=== PATIENT | male | born 1970 ===

== ENCOUNTER 2016-12-12 09:24 | Emergency (ER) | payer OTHER ==
[2016-12-12 10:16] VITALS: BP 143/81
[2016-12-12] MEDS ORDERED: DOXYcycline CAP(*) 100 MG PO ONE (10:57)
[2016-12-12] MEDS ORDERED: DOXYcycline CAP(*) 100 MG ONE (11:14)
--- NOTE | 2016-12-12 11:38 | UC ---
Skin Complaint HPI - HPI Summary HPI Summary: Patient presents to after finding a tick on the right side of his abdomen. He states he noticed it this morning, but is unsure how long it has been attached. He denies other ticks and checked this morning. He noticed some ticks on his arm which were not attached several weeks ago after hiking. He recently moved here and has never had a tick bite before, so he presents today for proper removal and prophylactic treatment of lyme. Denies neck pain, chest pain, SORENSEN, muscle aches, or neurological symptoms. Patient is otherwise healthy and takes no medications. - History of Current Complaint Chief Complaint: UCBiteInjury Time Seen by Provider: 12/12/16 10:36 Stated Complaint: TICK BITE Hx Obtained From: Patient Onset/Duration: Sudden Onset Skin Exposure Onset/Duration: Minutes Ago Timing: Constant Current Severity: None Pain Intensity: 0 Pain Scale Used: 0-10 Numeric Location: Discrete, Other - right side of abdomen Character: Redness Aggravating: Nothing Alleviating: Nothing Associated Signs & Symptoms: Positive: Negative Related History: Insect Bite/Sting - Allergy/Home Medications Allergies/Adverse Reactions: Allergies Allergy/AdvReac Type Severity Reaction Status Date / Time Tetanus Toxoid Allergy Unknown Unknown Verified 04/16/13 09:51 Reaction Details Review of Systems Constitutional: Negative Skin: Other - small tick attached to right side of abdomen ENT: Negative Respiratory: Negative Cardiovascular: Negative Motor: Negative Neurovascular: Negative Musculoskeletal: Negative Neurological: Negative Psychological: Negative All Other Systems Reviewed And Are Negative: Yes PMH/Surg Hx/FS Hx/Imm Hx Previously Healthy: Yes Endocrine History Of: Denies: Diabetes, Thyroid Disease Cardiovascular History Of: Denies: Cardiac Disorders, Hypertension, Pacemaker/ICD Respiratory History Of: Denies: COPD, Asthma GI/ History Of: Denies: Ulcer - Surgical History Surgical History: Yes Surgery Procedure, Year, and Place: TYMPANOPLASTY RIGHT EAR 2004-[facility]. TONSILS A CHILD. TUBES IN EARS A CHILD - Family History Known Family History: Positive: Unknown - Social History Occupation: Employed Full-time Lives: With Family Alcohol Use: Occasionally Substance Use Type: None Smoking Status (MU): Former Smoker - Immunization History Most Recent Tetanus Shot: WITH IN 5 YEARS Physical Exam Triage Information Reviewed: Yes Completion Of Physical Exam Limited Due To: Extremis Appearance: No Pain Distress, Well-Nourished Vital Signs: Initial Vital Signs Temp 97.8 F 12/12/16 10:09 Pulse 87 12/12/16 10:09 Resp 20 12/12/16 10:09 BP 143/81 12/12/16 10:09 Pulse Ox 99 12/12/16 10:09 Vital Signs Reviewed: Yes Eye Exam: Normal Neck exam: Normal Neck: Positive: Supple, No Lymphadenopathy Respiratory Exam: Normal Respiratory: Positive: Chest non-tender, Normal breath sounds Cardiovascular Exam: Normal Musculoskeletal Exam: Normal Neurological Exam: Normal Neurological: Positive: Alert Psychological Exam: Normal Psychological: Positive: Normal Response To Family Skin: Positive: significant lesion(s) - small tick attached to right side of abdomen with no surrounding erythema, bulls eye rash or other ticks visualized on physical exam. Course/Dx - Course Course Of Treatment: Tick was removed using Chelsie dish soap without complication. Patient was given Doxycycline 200mg for prophylactic treatment d/ t unknown time of tick latch. Educated patient on lyme disease and the need for prophylaxis as opposed to 2 week treatment. Explained he has not been diagnosed with lyme disease, but if any symptoms come up, he should follow up with his PCP for a lyme titer. - Differential Diagnoses - Skin Complaint Differential Diagnoses: Poison Jade, Tick Born Illness, Urticaria - Diagnoses Provider Diagnoses: Tick Bite Discharge - Discharge Plan Condition: Stable Disposition: HOME Patient Education Materials: Lyme Disease (ED), Tick Bite (ED) Referrals: Jose Grewal DO [Primary Care Provider] - Additional Instructions: You have been given Doxycycline for lyme prophylaxis. If you notice a tick, you may attempt to take it off yourself, or come back to to have us remove it. If you have any questions, you may call your PCP.
== END 2016-12-12 11:23 | disposition home or self-care (01) ==
LOC: UCEAST 09:24
DX: S30.861A Insect bite (nonvenomous) of abdominal wall, initial encounter (principal); W57.XXXA Bitten or stung by nonvenomous insect and other nonvenomous arthropods, initial encounter; Y93.9 Activity, unspecified; Y92.9 Unspecified place or not applicable; Z88.7 Allergy status to serum and vaccine; Z87.891 Personal history of nicotine dependence
CPT/HCPCS: 99211; A9270-GY; G0463

== ENCOUNTER → 2019-01-14 06:11 | Day surgery (SDC) | payer OTHER ==
[~2019-01-14 06:11] MED LIST: Buffered Lidocaine 1% SYRIN* 1 ML/SYRINGE INTRADERM ONE; Dexamethasone IV* 4 MG/ML 1 ML (4 MG) ONE; Famotidine IV* 10 MG/ML 2 ML (20 mg) IV ONE; Famotidine IV* 10 MG/ML 2 ML (20 mg) ONE; Ketorolac INJ* 30 MG/ML 1 ML VIAL ONE; Lactated Ringers 1000 ML Bag* 1,000 ML IV SCH; Lidocaine 2% MPF* 2 ML VIAL ONE; Midazolam* 1 MG/ML 2 ML VIAL (2 MG) ONE; Naloxone* 0.4 MG/ML 1 ML VIAL IV PRN; Ondansetron INJ* 2 MG/ML VIAL IV PRN; Ondansetron INJ* 2 MG/ML VIAL ONE; Propofol* 10 MG/ML 20 ML BTL ONE; fentaNYL* 50 MCG/ML 2 ML VIAL (100 MCG VIAL) IV PRN; fentaNYL* 50 MCG/ML 2 ML VIAL (100 MCG VIAL) ONE; oxyCODONE/Acetamin 5/325 MG* TAB PO PRN
[2019-01-14 09:25] VITALS: BP 118/69
--- NOTE | 2019-01-14 10:23 | OP ---
OPERATIVE NOTE: DATE OF OPERATION: 01/14/19 - SDS DATE OF : 70 SURGEON: Luciano Pichardo MD ANESTHESIOLOGIST: Felipe Burrows MD ANESTHESIA: General. PRE-OP DIAGNOSIS: Left side eustachian tube obstruction with adhesive otitis media. POST-OP DIAGNOSIS: Left side eustachian tube obstruction with adhesive otitis media. OPERATIVE PROCEDURE: Left myringotomy tube insertion under gas mask anesthesia. COMPLICATIONS: None. DISPOSITION: Good. SPECIMEN: None. BLOOD LOSS: None. DESCRIPTION OF PROCEDURE: The patient was taken to the operating room, placed on the supine position on the operating room table and maintained with gas mask anesthesia, because I wanted nitrous oxide to try to pop off the tympanic membrane from the promontory. Microscope was brought in. Speculum placed in the left ear canal. Tympanic membrane was visualized. It was adhesed to the underlying promontory. I used a suction to elevate it off. I was able to get some space posteriorly. I made an incision with a myringotomy knife and tried to tease of the tympanic membrane from the promontory with suction and Loving and then placed a T- type myringotomy tube. Ofloxacin drops were placed. Cotton ball was placed in the canal. The patient tolerated the procedure well. No complications. Transferred to the recovery room in stable condition. [id number]/[facility] #: [id number] KAY
== END | disposition home or self-care (01) ==
LOC: OR 06:11
PROVIDERS: ATTEND Otolaryngology
DX: H74.12 Adhesive left middle ear disease (principal); H90.6 Mixed conductive and sensorineural hearing loss, bilateral; H74.03 Tympanosclerosis, bilateral; E11.9 Type 2 diabetes mellitus without complications; G47.33 Obstructive sleep apnea (adult) (pediatric); Z87.891 Personal history of nicotine dependence
CPT/HCPCS: C1776; J1100; J1885; J2250; J2405; J2704; J3010

== ENCOUNTER 2019-08-05 11:35 | Emergency (ER) | payer OTHER ==
--- NOTE | 2019-08-05 12:10 | UC ---
Laceration HPI - HPI Summary HPI Summary: 48-year-old male who lacerated his right distal index finger with a saws all 3 days ago. He was sent here mostly by his who felt he should have it checked. He thinks last tetanus was a "partial tetanus" 6 years ago because he has a history of being allergic to tetanus toxoid. He has some pain on palpation and mild swelling minimal erythema. - History Of Current Complaint Stated Complaint: RT FORE FINGER LACERATION Time Seen by Provider: 08/05/19 12:00 Hx Obtained From: Patient Laceration Location: Finger Mechanism Of Injury: Sharp Trauma Onset/Duration: Lasting Days - This happened 3 days ago. Severity: Mild Aggravating Factors: Movement - Allergies/Home Medications Allergies/Adverse Reactions: Allergies Allergy/AdvReac Type Severity Reaction Status Date / Time Tetanus Vaccines and Toxoid Allergy Unknown Verified 08/05/19 12:06 Reaction Details PMH/Surg Hx/FS Hx/Imm Hx Previously Healthy: Yes - Surgical History Surgical History: Yes Surgery Procedure, Year, and Place: TYMPANOPLASTY RIGHT EAR 2004-[facility]. TONSILS A CHILD. TUBES IN EARS A CHILD. Left hand tendon repair [facility] - Family History Known Family History: Positive: Unknown - Social History Alcohol Use: Occasionally Substance Use Type: None Smoking Status (MU): Former Smoker Type: Cigarettes Amount Used/How Often: 1 PPD for 15 years When Did the Patient Quit Smoking/Using Tobacco: quit age 35 - Immunization History Most Recent Tetanus Shot: WITH IN 5 YEARS Review of Systems All Other Systems Reviewed And Are Negative: Yes Skin: Positive: Other - Lacerated distal right index finger with a sawsall 3 days ago. Is Patient Immunocompromised?: No Physical Exam Triage Information Reviewed: Yes Appearance: Well-Appearing, No Pain Distress, Well-Nourished Vital Signs Reviewed: Yes Eyes: Positive: Conjunctiva Clear Musculoskeletal: Positive: Strength Intact, ROM Intact, Other: - Good finger strength with flexion and extension against resistance. Peripheral pulses, neuro sensation and capillary refill. Neurological: Positive: Alert, Muscle Tone Normal Psychological Exam: Normal Skin: Positive: Other - Approximately 1.0 cm jagged laceration to the radial side of his distal right index finger. The area appears to be healing however there is minimal erythema present, no pus drainage, no red streaks. It is tender on palpation. Laceration Course/Dx - Course/Dx Course Of Treatment: Right index finger x-ray: Patient decided because of the long wait he preferred not to have the x-ray done. I am going to started him on cephalexin 500 mg by mouth twice a day 10 days and watch for signs of infection. He is going to ask his mother about the reaction he had to tetanus when he was a child. He'll follow-up with his own physician if he needs another tetanus immunization. - Diagnosis Provider Diagnosis: Laceration of finger, Cellulitis, finger Discharge ED - Sign-Out/Discharge Documenting (check all that apply): Patient Departure All imaging exams completed and their final reports reviewed: No Studies - Discharge Plan Condition: Good Disposition: HOME Prescriptions: Cephalexin CAP* [Keflex 500 CAP*] 500 mg PO BID 10 Days #20 cap Patient Education Materials: Cellulitis (DC) Referrals: Jose Grewal DO [Primary Care Provider] - Additional Instructions: Apply bacitracin ointment to the area and change the Band-Aid daily. Watch for signs of infection and follow-up with your primary care provider if you develop infection such as hot, red, red streaks, pus drainage. - Billing Disposition and Condition Condition: GOOD Disposition: Home
[2019-08-05 12:11] VITALS: BP 132/85
== END 2019-08-05 13:12 | disposition home or self-care (01) ==
LOC: UCCORT 11:35
DX: S61.210A Laceration without foreign body of right index finger without damage to nail, initial encounter (principal); L03.011 Cellulitis of right finger; Z88.7 Allergy status to serum and vaccine; Z87.891 Personal history of nicotine dependence; W31.89XA Contact with other specified machinery, initial encounter; Y92.9 Unspecified place or not applicable
CPT/HCPCS: 99212; G0463